=== PATIENT | male | born 1955 | race Caucasian/White ===

== ENCOUNTER 2018-05-13 05:50 | Inpatient (IN) | payer BC, MEDICARE, SELFPAY ==
[2018-04-30 09:55] VITALS: BMI 37.3
[2018-05-13] VITALS (13 sets, daily range): BP systolic 97–140; BP diastolic 55–82; PULSE 54–81; RESP 12–18; TEMP 36.3–37.3; O2SAT 94–98; BMI 37.3
--- NOTE | 2018-05-13 06:00 | DI.RAD.S_ITS ---
PROCEDURE: XR PELVIS 1-2V INDICATIONS: post op TECHNIQUE: One view of the pelvis acquired. COMPARISON: [facility] [place], [place], XR PELVIS WITH BILATERAL LATERAL HIPS, 03/20/2018, 8:58 FINDINGS: Bones: Patient is status post right total hip arthroplasty. No acute pelvic or hip fracture. Right hip alignment is anatomic. No gross hardware loosening or failure. Moderate to severe left hip joint osteoarthritis is seen. No suspicious bony lesions. Soft tissues: Visualized bowel gas pattern is normal. No suspicious soft tissue calcifications. IMPRESSION: Patient is post right total hip arthroplasty with anatomic right hip alignment. No gross hardware complication. Moderate to severe left hip joint osteoarthritis. Dictated by: Yuriy Aguilar M.D. on 05/13/2018 at 10:49 Approved by: Yuriy Aguilar M.D. on 05/13/2018 at 10:51
[2018-05-13] MEDS: LACTATED RINGERS 1,000 ML 42 ML IV (06:50)
[2018-05-13] MEDS: CELECOXIB 200 MG CAPSULE PO (06:55)
[2018-05-13] MEDS: PREGABALIN 75 MG CAPSULE PO (06:55)
[2018-05-13] MEDS: ACETAMINOPHEN 325 MG TABLET 975 MG PO ×3 (06:56→21:20)
[2018-05-13] MEDS: CEFAZOLIN 2 GM/100 ML FROZ.PIGGY IV ×3 (07:55→22:56)
--- NOTE | 2018-05-13 08:01 | PM.PREOP ---
Pre-operative Note Interval Note Pre-op Check: Yes History & Physical Reviewed by Physician Changes: No
[2018-05-13] MEDS: TRANEXAMIC ACID 1,000 MG VIAL 1000 MG INJ (08:35)
--- NOTE | 2018-05-13 09:00 | SUR.OPER ---
Lateral on padded OR bed. Gel axillary roll. Arms secured on padded armboard with pillow supporting top arm. Padded hip positioner braces x4 - anterior and posterior chest and pelvis. Additional gel pad used anterior pelvis. Gel pad under bottom leg from knee to foot and secured with tape over sheet.
[2018-05-13] MEDS: BUPIVACAINE 0.25% W/ EPI VIAL 50 ML INJ (09:06)
--- NOTE | 2018-05-13 10:18 | P.OP_ITS ---
Operative Date/Time/Diagnoses Date of procedure: 05/13/18 Time of procedure: 10:11 Pre-op diagnosis: Right hip degenerative joint disease Post-op diagnosis: same Procedure & Clinicians Procedure: Right total hip arthroplasty (CPT code 31564 with broker assistant) Same procedure as scheduled: Yes Indications: Patient is an 62-year-old male with severe right hip DJD. The patient has pain with activities and at rest, limited ambulation and activity tolerance, difficulties with ADLs, and failure of conservative treatment. We have discussed the nature of condition, treatment options, risks and benefits, and patient elects to proceed with total hip arthroplasty and gives informed consent. Surgeon: Kings Dickinson Traffic Warehouse Supervisor: Rita Kate Anesthesia Type: General Operative Notes Closure Type: primary Specimen(s): none sent Implants & Drains: Acetabulum: Miranda and Nephew R3 acetabular component size 54 mm Femoral component: Miranda and Nephew Synergy stem size 14 with high offset Femoral head: 36 mm + 8 mm Oxinium Estimated Blood Loss (mL): 100 Blood products transfused: none Procedure in detail: After satisfaction induction of anesthetic, and administration of IV antibiotics, the patient was positioned in the lateral decubitus position with all bony prominences well padded and pelvic position secured using a hip automotive glass installer positioning device. Right hip and lower extremity prepped and draped in the usual sterile fashion, 1st dose of intravenous tranexamic acid was administered, then a longitudinal incision was created centered over the greater trochanter and carried sharply through the skin and subcutaneous tissues down to the fascia pilar which was divided longitudinally and retracted with a Charnley retractor. External rotators visualize, cut, tagged, and retracted posteriorly, then the capsule was cut in a T-type fashion with the corners tagged and retracted. Hip was dislocated and femoral neck cut made according to preoperative templating. Acetabular retractors then placed, and the acetabular labrum and osteophytes were excised. The acetabulum was then sequentially reamed to 53 mm with an excellent circumferential ream and fit with the trial, although the acetabular component appeared to be more medialized than was originally templated. The trial component was removed and a permanent size 54 mm Miranda and Nephew R3 acetabular component was selected, positioned, and impacted with satisfactory position and fixation achieved. Permanent liner was then inserted with the elevated lip directed posteriorly. Soft tissue then removed off the lateral femoral neck in the lateral neck was entered using a box osteotome. T-handled reamers placed down the canal followed by sequential broaching to 14 with the final broach left in place for trial reduction which demonstrated fair leg length, range of motion, and stability characteristics with a 36 mm +0 trial ball. With the hip flexed 90? and adducted 30? the hip began to sublux at about 30? of internal rotation. Therefore a combination high offset +8 mm head neck combination was trialed which yielded much better leg length range of motion and stability characteristics with hip flexion to 90? in adduction 30?, subluxation did not occur until about 60? of internal rotation. The trial and broach were removed, and a permanent size 14 high offset Miranda and Nephew Synergy stem was selected and inserted with excellent position and fixation achieved. Another trial reduction yielded the above characteristics so the trial ball was exchanged for a permanent 36 mm + 8 Oxinium ball. The hip was irrigated and reduced and excellent leg length range of motion and stability characteristics were achieved and maintained. Periarticular tissues were infiltrated with Marcaine. The hip was copiously irrigated, and the capsule repaired with #2 Ethibond, and the piriformis was repaired back to the greater trochanter with the same. Fascia pilar closed with interrupted #1 Ethibond sutures, and the subcutaneous tissues were closed in 2 layers of 0 Vicryl and 2 0 Vicryl. Skin was closed with tunde and sterile dressings applied. Second dose of tranexamic acid was administered intravenously, and the anesthetic was terminated. Complications: none Condition: stable Disposition: PACU Plan for aftercare: Patient will be admitted to the acute care [facility], and anticipate discharge on postop day 1 or 2 with follow-up in office in 10-14 days. Outpatient physical therapy will be arranged and patient will continue to observe posterior hip precautions. Patient will continue use of postoperative Lovenox for 10 days postop.
[2018-05-13] MEDS: fentaNYL 100 MCG/2 ML INJ 50 MCG IV ×2 (10:20→10:25)
[2018-05-13] MEDS: HYDROMORPHONE 2 MG TABLET PO ×4 (10:50→22:56)
[2018-05-13] MEDS: LACTATED RINGERS 1,000 ML 125 ML IV (12:01)
--- NOTE | 2018-05-13 13:39 | CM.DANOTE ---
Addendum entered by Amaris Alcocer LPN 05/14/18 14:36: DCP: continued.. Pt did well with therapy and was ok'd to go home with Josephine's supportive assist. Went to room to check in with pt and he had already left the hospital for home. No concerns re the dc were identified by the care team members. Original Note: Discharge Planning/Care Management DCP: assessment: case received, EMR reviewed and went to room to introduce self and role. Pt remains in PACU. WB in room updated and will plan to see him tomorrow. Pt is a 62 year old malel who admitted early this morning to care of Dr. Dickinson for a planned: RTHA/posterior precautions. PCP: Chandrakant Mckinley Payer: [facility] and Medicare PT will be ordered and will check for OT need (likely, will obtain if need be). P: at this point is identified by Dr. Dickinson as home. Will be following as POC and therapy proceed to assist with d/c issues and options. CM Discharge Assessment Start: 05/13/18 13:35 Freq: Status: Active Protocol: Document 05/13/18 13:36 ITV (Rec: 05/13/18 13:39 ITV [id number]) Discharge Planning Assessment Advance Directives? No: Declines further information Advance Directives on File No History Provided By Medical Record Prior Living Arrangements Mobile home Household Members spouse Discharge Plan Home Community Services Physical Therapy Additional Comment At this time Dr. Dickinson states plan is home, one or 2 days post op, outpt PT. Will follow as POC unfolds to make sure this is doable. Anticipate PT/OT involvement Whiteboard Updated in Patient Room with Yes name and ext. # of Economist Research Assistant Comment Pt is still in PACU. Will see him either later today or tomorrow when he is stabilized on the medical floor. Review Status In Process Next Review Type Continued Stay Review
--- NOTE | 2018-05-13 14:56 | PC.NURSE ---
Admit Pt arrived to room 212 reports pain 6/10 to R hip. Dressing CDI, ice applied. Spinal failed and Pt has PP+ CMS+ pain medication and snack provided. Pt is motivated to complete swiftpath and work on ambulation today. 1445-Up with PT 1PA fww bed exchanged. Pain well controlled.
--- NOTE | 2018-05-13 15:00 | PT.IIE ---
Current Diagnoses Unilateral primary osteoarthritis, right hip (05/13/18) Surgery Performed Operation Date: 05/13/18 07:45 Actual Procedures p Total Hip Arthroplasty(Right) - Kings Dickinson MD Surgical History (Last Updated 04/30/18 @ 10:14 by Chery Brandt RN) History of lumbar spinal fusion (Acute) History of lumbar surgery (Acute) Hx of tonsillectomy (Acute) Medical History (Last Updated 04/30/18 @ 10:14 by Chery Brandt RN) Arthritis (Acute) Failed spinal cord stimulator (Acute) Fuchs' corneal dystrophy (Acute) HTN (hypertension) (Acute) Lumbar stenosis with neurogenic claudication (Acute) Numbness and tingling (Acute) Paroxysmal atrial fibrillation (Acute) Physical Therapy Inpatient Evaluation/Re-Eval M1 PT/OT-IP Prior Functional Status Start: 05/13/18 16:16 Freq: NEEDED Status: Active Protocol: Document 05/13/18 15:00 MDD (Rec: 05/13/18 16:28 [facility] [id number]) Medical Review Prior Functional Status Medical History Reviewed Yes Communication normal Mobility and Gait independent with no AD Activities of Daily Living and IADL's independent Social History Household Members spouse Living Arrangements House Number of Floors (Floors) One Floor Number of Stairs To Enter/Railing? 4 steps to enter, B hand rails Home Environment Standard Height Toilet Walk in Shower Home Equipment Raised Toilet Seat w/Armrests Employment Status Retired Additional Social History Comment Pt lives with his , Josephine in [place]. Their daughter lives just down the street, as well as multiple other family members. M2 PT-IP Current Condition Start: 05/13/18 16:16 Freq: NEEDED Status: Active Protocol: Document 05/13/18 15:00 MDD (Rec: 05/13/18 16:28 [facility] [id number]) Physical Therapy Current Condition Current Condition Evaluation Date 05/13/18 Treatment Diagnosis s/p R [id number] Onset Date 05/13/18 Precautions Posterior Hip Precautions No Hip Flexion > 90 degrees No Hip Internal Rotation No Hip Adduction Weight Bearing Status Weight Bearing Status Weight Bear as Tolerated M3 PT-IP Subjective Start: 05/13/18 16:16 Freq: NEEDED Status: Active Protocol: Document 05/13/18 15:00 MDD (Rec: 05/13/18 16:28 [facility] [id number]) Subjective Physical Therapy Visit Type Type Initial Evaluation Visit Start Time 14:20 Visit Stop Time 15:00 Total Visit Minutes 40 Notes BP supine: 102/63 mm Hg sitting EOB: 102/48 mm Hg, after 5 minutes 101/57 mm Hg After activity: 124/65 mm Hg Number of GROCERY SACKER Visits 0 Physical Therapy Visit Comments Patient Comments Pt very motivated to get out of bed and start walking today . Therapy Pain Assessment Pain When Pain Assessed At Rest Pain Present Pain Present Pain Reported Location Right Hip Intensity 4 Scale Used Numeric (1 - 10) Description Aching Pain Management Techniques Apply Cold Timing of Activity with Medications M4 PT-IP Mobility and Gait Start: 05/13/18 16:16 Freq: NEEDED Status: Active Protocol: Document 05/13/18 15:00 [facility] (Rec: 05/13/18 16:28 [facility] [id number]) PT-Bed Mobility Assessment Supine to Sit Supine to Sit Standby Assistance Bedrails Scooting Scooting to Edge of Bed Independent PT-Transfer Assessment Sit to and From Stand Sit to and from Stand Contact Guard Assistance Equipment Transfer Assistive Device Gait Belt Front Wheeled Walker Transfers Transfer Destination Chair Transfer Technique Stand Step Pivot Transfer Ability Level of Assist Contact Guard Assistance Comments Mobility Comments cues/reminders for kicking R LE out during sit <> stand to low recliner Gait Assessment Gait Distance (Feet) (feet) 100 Able to Maintain Weight Bearing Status Yes During Gait Assistive Devices Assistive Device Gait Belt Front Wheeled Walker Gait Deviations General Gait Pattern Antalgic Step-to Gait Comments Gait Comments Step to gait improved to step through with cues. Increased reliance on UE's on walker. PT-Balance Assessment Sitting Balance and Reactions Static Sitting Balance Ability Normal Dynamic Sitting Balance Ability Normal Standing Balance and Reactions Static Standing Balance Ability Good Dynamic Standing Balance Ability Good M5 PT-IP Objective Assessments Start: 05/13/18 16:16 Freq: NEEDED Status: Active Protocol: Document 05/13/18 15:00 [facility] (Rec: 05/13/18 16:28 [facility] [id number]) Orientation Orientation/Cognition Level of Alertness Alert Orientation Name Age Birthday Month Date Year Day of Week Place Situation Language Function Ability No Deficits Noted Safety Awareness Understands Safety Issues Memory Description No Deficits Noted Gross Range of Motion Lower Extremity ROM Assessment Within Functional Limits Strength Lower Extremity Strength Assessment Within Functional Limits Coordination Assessment Gross Coordination Gross Coordination WNL Sensation Assessment Sensation Gross Sensation WNL M6 PT-IP Treatment Start: 05/13/18 16:16 Freq: NEEDED Status: Active Protocol: Document 05/13/18 15:00 MDD (Rec: 05/13/18 16:28 [facility] [id number]) Physical Therapy Treatment Education Education Provided Precautions Weight Bearing Status Post-Op Packet Safety M7 PT-IP Assessment and Plan Start: 05/13/18 16:16 Freq: NEEDED Status: Active Protocol: Document 05/13/18 15:00 MDD (Rec: 05/13/18 16:28 [facility] [id number]) PT Summary Assessment and Plan Potential Rehabilitation Potential Excellent Status of Condition at Evaluation Stable Summary Impairments Pain Bed Mobility Transfers Gait Activity Tolerance Progress Towards Goals Progressing Toward Goals Assessment Summary Pt demonstrates bed mobility with SBA and use of bed rails and transfers and gait with CGA today. Although BP was low throughout, pt was asymptomatic. Demonstrates good knowledge of posterior hip precautions - able to verbalize them prior to session. Will continue to benefit from skilled inpatient PT to maximize function for safe d/c home. Goals Bed Mobility Goal Independent Transfer Goal Independent Gait Goal Independent Gait Distance 100 Other Goals Ascend/descend 4 steps with B hand rails Days to Meet Goals 3 Frequency of Treatment Frequency Of Treatment Twice a Day Treatment Plan Physical Therapy Treatment Plan Bed Mobility Training Transfer Training Gait Training Post Op Education Other Recommendations and Next Treatment review bed mobility Focus Recommendations To Nursing Amount of Assist Needed 1 Person Assist Discharge Recommendations PT Discharge Recommendations Home Home with Assistance Equipment Needed for Home Before pt may benefit from use of a Discharge shower chair/bench initially.
[2018-05-13] MEDS: HYDROCODONE/ACET 5/325 TABLET 1 TAB PO (16:59)
[2018-05-13] MEDS: METOPROLOL ER 25 MG TABLET PO (21:19)
[2018-05-13] MEDS: ASPIRIN EC 81 MG TABLET PO (21:20)
--- NOTE | 2018-05-13 21:48 | PC.NURSE ---
AXEL SHIFT NOTE: Patient doing well this shift, up with PT at shift change and tolerating mobilization with little pain. Patient able to ambulate with SBA to bathroom during shift. Dilaudid effective for pain control at this time. Tolerating POs with no nausea. Patient states he is feeling stronger and leg is feeling awake more. No acute distress, VSS. at bedside to room in for the night. Call light in reach. Will continue to monitor.
--- NOTE | 2018-05-13 23:46 | PC.NURSE ---
Addendum entered by Alicia Tyler R.N. 05/14/18 06:54: Slept at intervals. Medicated at 0611 with Dilaudid for complaint of 7/10 pain; now reassessed and pain is easing up and rates severity as 5/10. Requesting to ambulate in [place] once pain under better control. Original Note: Patient is alert and oriented. Breath sounds CTA with RA sat of 95%. HRR. Denies nausea. BT present and is passing flatus. Denies dysuria, frequency, urgency or incontinence and is using urinal to void. Dressing to right hip is CDI. States pain is currently 2-3/10 after being medicated at 2300 with Dilaudid. Ice pack is applied for additional comfort. Able to turn himself in bed but prefers to lie on back. CMS intact. Unable to lift right leg off bed. Declines use of SCD's; discussed importance of use to prevent blood clots but states he is moving his legs alot so continued to decline use. Fall risk score is moderate; bed alarm on for the night as precautionary. rooming in.
[2018-05-14] MEDS: HYDROMORPHONE 2 MG TABLET PO ×2 (03:12→06:11)
[2018-05-14 03:26] VITALS: BP 118/64; PULSE 66; RESP 16; TEMP 36.7; O2SAT 97
[2018-05-14 06:50] LABS: Hematocrit 34.3 % (41-53); Hemoglobin 11.6 g/dL (13.5-17.5)
[2018-05-14 07:00] VITALS: BP 121/67; PULSE 66; RESP 16; TEMP 37.3; O2SAT 93
[2018-05-14] MEDS: OXYCODONE IR 10 MG TABLET PO ×2 (09:23→12:01)
[2018-05-14] MEDS: ACETAMINOPHEN 325 MG TABLET 975 MG PO (09:26)
[2018-05-14 09:28] VITALS: PULSE 72
[2018-05-14] MEDS: ASPIRIN EC 81 MG TABLET PO (09:28)
[2018-05-14] MEDS: METOPROLOL ER 25 MG TABLET PO (09:28)
[2018-05-14] MEDS: RIVAROXABAN 10 MG TABLET 20 MG PO (09:28)
[2018-05-14] MEDS: AMIODARONE 200 MG TABLET 400 MG PO (09:29)
[2018-05-14 09:30] VITALS: PULSE 72
[2018-05-14] MEDS: DORZOLAMIDE/TIMOLOL OPHTH 10 ML 1 DROPS EYE-BOTH (09:30)
[2018-05-14] MEDS: DIGOXIN 0.25 MG TABLET PO (09:30)
--- NOTE | 2018-05-14 11:12 | OT.IP.EVAL ---
Current Diagnoses Unilateral primary osteoarthritis, right hip (05/13/18) Surgery Performed Operation Date: 05/13/18 07:45 Actual Procedures p Total Hip Arthroplasty(Right) - Kings Dickinson MD Past Medical History (Last Updated 04/30/18 @ 10:14 by Chery Brandt, RN) Arthritis (Acute) Failed spinal cord stimulator (Acute) Fuchs' corneal dystrophy (Acute) HTN (hypertension) (Acute) Lumbar stenosis with neurogenic claudication (Acute) Numbness and tingling (Acute) Paroxysmal atrial fibrillation (Acute) Surgical History (Last Updated 04/30/18 @ 10:14 by Chery Brandt RN) History of lumbar spinal fusion (Acute) History of lumbar surgery (Acute) Hx of tonsillectomy (Acute) Occupational Therapy Inpatient Evaluation/Re-Eval M1 PT/OT-IP Prior Functional Status Start: 05/14/18 15:52 Freq: NEEDED Status: Active Protocol: Document 05/14/18 15:52 [id number] (Rec: 05/14/18 16:05 THERON [id number]) Medical Review Prior Functional Status Medical History Reviewed Yes Diet/Fluid Consistency Regular Communication normal Mobility and Gait independent with no AD Activities of Daily Living and IADL's independent Prior Functional Level (Other details) pt is retired, works 4am- 1pm and will take 1 week off work Social History Household Members spouse Living Arrangements House Number of Floors (Floors) One Floor Number of Stairs To Enter/Railing? 4 steps to enter, B hand rails Home Environment Standard Height Toilet Walk in Shower Home Equipment Front Wheel Walker Raised Toilet Seat w/Armrests Employment Status Retired Additional Social History Comment Pt lives with his , Josephine in [place]. Their daughter lives just down the street, as well as multiple other family members. Pt plans to stand to shower with SBA from . M2 OT-IP Current Condition Start: 05/14/18 15:52 Freq: Status: Active Protocol: Document 05/14/18 15:52 PJM (Rec: 05/14/18 16:05 PJ [id number]) Occupational Therapy Current Condition Current Condition Evaluation Date 05/14/18 Treatment Diagnosis decreased self care, functional mobility after R TAWNYA Diagnosis Onset Date 05/13/18 Post Operative Precautions Posterior Hip Precautions No Hip Flexion > 90 degrees No Hip Internal Rotation No Hip Adduction Weight Bearing Status Weight Bearing Status Weight Bear as Tolerated M3 OT- IP Subjective and Pain Start: 05/14/18 15:52 Freq: Status: Active Protocol: Document 05/14/18 15:52 PJM (Rec: 05/14/18 16:05 [facility] [id number]) OT- Subjective Occupational Therapy Visit Type Type Initial Evaluation Visit Start Time 10:10 Visit Stop Time 11:12 Total Visit Minutes 62 Notes here for education this session Occupational Therapy Visit Comments Patient Comments I don't know how to get my pants on. Patient/Caregiver Goals to go home today OT Pain Assessment Pain When Pain Assessed After Treatment Pain Present Pain Present Pain Reported Location Right Hip Intensity 5 Scale Used Numeric (1 - 10) Description Acute Pain Behaviors Guarding Management Techniques Re-positioning Timing of Activity with Medications M4 OT- IP ADL's Start: 05/14/18 15:52 Freq: Status: Active Protocol: Document 05/14/18 15:52 PJM (Rec: 05/14/18 16:05 [facility] [id number]) OT [id number] General Evaluation Self-Feeding Ability Independent OT ADL-Grooming General Evaluation Grooming Ability Independent Comments OT Grooming Comments standing at sink OT ADL-Oral Care General Eval Oral Care Ability Independent Comments Oral Care Comments standing at sink OT ADL-Dressing General Eval Upper Body Dressing Ability Independent Lower Body Dressing Ability Standby Assistance Areas Needing Assistance Retrieving/Set-up of Clothing Pull-Over Shirt Pants/Shorts Shoes Assistive Devices Dressing Assistive Devices Hypercil Core Transformer Assembler Comments OT Dressing Comments Pt declines sock aid as he never wears socks until winter . He wears slip on sandals. Pt can borrow certified coding specialist or will order on line. Resource information provided. OT ADL-Toileting General Evaluation Toileting Ability Independent Devices Toileting Assistive Devices Toilet Paper Aid Comments OT Toileting Comments Pt has toilet paper aid and education provided re: it's use. OT ADL-Bathing Bathing Type Bathing Type Shower Devices Bathing Equipment Long Handled Sponge or Farley Comments OT Bathing Comments Pt declined to shower here. He plans to stand. will assist PRN. She will obtain long bath sponge for pt. M5 OT- IP IADL's Start: 05/14/18 15:52 Freq: Status: Active Protocol: Document 05/14/18 15:52 PJM (Rec: 05/14/18 16:05 [facility] [id number]) OT-Instrumental Activities of Daily Living Deficits IADL Deficits Identified Deficits Home Safety Awareness Awareness of Need for Assistance at Home Good Awareness Ability to Problem Solve Emergency Able to Problem Solve Situations Medication Management Medication Management No Deficits Identified Money Management Money Management No Deficits Identified Meal Preparation Meal Preparation Caregiver Provides Assist Meal Preparation Comments Provided education re: carrying food items with FWW Geospatial Information Technologist Geospatial Information Technologist Caregiver Provides Assist Geospatial Information Technologist Comments to assist until pt able Driving Driving Caregiver Provides Assist Driving Comments family to assist until pt able M6 OT- IP Functional Cognition Start: 05/14/18 15:52 Freq: Status: Active Protocol: Document 05/14/18 15:52 THERON (Rec: 05/14/18 16:05 [facility] [id number]) Cognitive Factors Limiting Selfcare Function Cognitive Ability Level of Alertness Alert Patient Orientation Name Age Birthday Month Date Year Day of Week Place Situation Attention Span Ability Capable of Focused Attention Capable of Sustained Attention Ability to Follow Commands Able to Follow One Step Commands Able to Follow Multi-Step Commands Memory Description No Deficits Noted Safety Awareness No Deficits Noted Problem Solving Ability No deficits Noted Executive Function Ability No Deficits Noted Abstract Thinking Ability No Deficits Noted Cognitive Comments Cognitive Assessment Comments Pt recalls 3/3 hip precautions and asking appropriate questions about adapted ADLS OT- Vision and Hearing OT- Hearing Assessment OT- Hearing Assessment WFL OT- Vision Assessment Visual Acuity WFL Glasses All The Time Vision Assessment Comments Pt denies any recent changes. M7 OT- IP Mobility and Balance Start: 05/14/18 15:52 Freq: Status: Active Protocol: Document 05/14/18 15:52 THERON (Rec: 05/14/18 16:05 [facility] [id number]) OT- Bed Mobility Assessment Rolling Type of Rolling Roll to Left Level of Assistance Standby Assistance Supine to Sit Supine to Sit Assist Independent Scooting Scooting to Edge of Bed Independent OT-Transfer Assessment Sit to and From Stand Sit to and from Stand Standby Assistance Technique Transfer Destination Car Chair Transfer Technique Stand Step Pivot Devices Transfer Assistive Devices Gait Belt Front Wheeled Walker Comments Mobility Comments Provided education re: use of cane as leg rn or lpn. Pt normally exits bed to Left. Explained that exiting to Right may be easier and P.T. to practice in/out of bed again with pt later this AM. OT- Gait Assessment Gait Gait Assistance Required: Standby Assistance Distance (Feet) (feet) 3 Assistive Devices Assistive Device Gait Belt Front Wheeled Walker Comments Gait Ability Comments transfer to chair OT- Balance Assessment Sitting Balance and Reactions Static Sitting Balance Ability Normal Dynamic Sitting Balance Ability Normal Standing Balance and Reactions Static Standing Balance Ability Good Dynamic Standing Balance Ability Good Comments Other Balance Tests/Deviations/Treatment No LOB during standing for : clothing management M8 OT- IP Objective Assessments Start: 05/14/18 15:52 Freq: Status: Active Protocol: Document 05/14/18 15:52 PJ (Rec: 05/14/18 16:05 [facility] [id number]) OT Gross Range of Motion Upper Extremity Range of Motion Assessment Within Functional Limits OT Strength Upper Extremity Strength Assessment Within Functional Limits OT- Coordination Assessment Comments Coordination Comments BUE WNL OT-Muscle Tone Assessment Muscle Tone WNL Yes OT Sensation Assessment Comments Summary Comments BUE WNL Edema Edema Absent Edema Comments BUE M9 OT- IP Assessment and Plan Start: 05/14/18 15:52 Freq: Status: Active Protocol: Document 05/14/18 15:52 PJM (Rec: 05/14/18 16:05 [facility] [id number]) OT Summary Assessment and Plan Potential Rehabilitation Potential Excellent Analytic Complexity at Evaluation Low Summary OT Impairments Pain Assessment Summary Low complexity OT assessment and all education completed in one visit re: minimum seat heights, adapted ADLS, bathroom/car/ shower stall transfers within posterior hip precautions. Pt/ verbalize/demonstrate good understanding of all education. will obtain certified coding specialist and long bath sponge for pt. Pt plans to d/c home today with 24 hr assist from supportive, capable for first week. No further OT services needed. Frequency of Treatment Frequency Of Treatment Discharge Treatment Plan Other Treatment Recommendations and Next No further OT services needed Treatment Focus Discharge Recommendations OT Discharge Recommendations Home with Assistance Home Equipment Needs certified coding specialist, long bath sponge- to obtain
--- NOTE | 2018-05-14 11:26 | PC.NURSE ---
Bulky dressing to right hip removed and Coversite applied in its place. HL removed. Pt up with PT/OT and is now dressed. Pt states he will eat lunch and then discharge home with Spouse Josephine. Reviewed d/c meds, time of last dose, hip precautions, s/s of infection and when to call MD, and follow up appointment. Pt denies further questions and will be taken out via w/c after lunch.
--- NOTE | 2018-05-14 11:51 | PT.IPTN ---
Current Diagnoses Unilateral primary osteoarthritis, right hip (05/13/18) Surgery Performed Operation Date: 05/13/18 07:45 Actual Procedures p Total Hip Arthroplasty(Right) - Kings Dickinson MD Physical Therapy Treatment Note M2 PT-IP Current Condition Start: 05/13/18 16:16 Freq: NEEDED Status: Active Protocol: Document 05/13/18 15:00 MDD (Rec: 05/13/18 16:28 MDD [id number]) Physical Therapy Current Condition Current Condition Evaluation Date 05/13/18 Treatment Diagnosis s/p R TAWNYA Onset Date 05/13/18 Precautions Posterior Hip Precautions No Hip Flexion > 90 degrees No Hip Internal Rotation No Hip Adduction Weight Bearing Status Weight Bearing Status Weight Bear as Tolerated M3 PT-IP Subjective Start: 05/13/18 16:16 Freq: NEEDED Status: Active Protocol: Document 05/14/18 11:40 CLB (Rec: 05/14/18 11:51 CLB [id number]) Subjective Physical Therapy Visit Type Type Treatment Note Visit Start Time 11:10 Visit Stop Time 11:40 Total Visit Minutes 30 Number of INVERTED BLOCK OPERATOR Visits 1 Physical Therapy Visit Comments Patient Comments Pt agreeable to do therapy. Therapy Pain Assessment Pain When Pain Assessed During Mobility Pain Present Pain Present Pain Reported Location Right Hip Intensity 5 Scale Used Numeric (1 - 10) Description Aching Pain Management Techniques Apply Cold Timing of Activity with Medications M4 PT-IP Mobility and Gait Start: 05/13/18 16:16 Freq: NEEDED Status: Active Protocol: Document 05/14/18 11:40 CLB (Rec: 05/14/18 11:51 CLB [id number]) PT-Bed Mobility Assessment Supine to Sit Supine to Sit Standby Assistance Scooting Scooting to Edge of Bed Independent PT-Transfer Assessment Sit to and From Stand Sit to and from Stand Standby Assistance Equipment Transfer Assistive Device Gait Belt Front Wheeled Walker Transfers Transfer Destination Bed Chair Transfer Ability Level of Assist Standby Assistance Gait Assessment Gait Gait Assistance Required: Standby Assistance Distance (Feet) (feet) 200 Able to Maintain Weight Bearing Status Yes During Gait Assistive Devices Assistive Device Gait Belt Front Wheeled Walker Gait Deviations General Gait Pattern Antalgic Comments Gait Comments Pt ambulating with step through gait pattern. Stair Climbing Assessment Evaluation Level of Assist On Stairs Contact Guard Assistance 1 Person Assistance Devices Stair Climbing Assistive Devices Straight Cane Right Railing Technique/Endurance Stair Climbing Direction Ascend and Descend Stair Climbing Technique Step to Step Number of Steps Climbed 3 Query Text: Stair Climbing Set # Repetitions (reps) 2 Comments Stair Climbing Comments Pt completed on set of stairs with therapist to demonstrate for . assisted pt safely on second set. M5 PT-IP Objective Assessments Start: 05/13/18 16:16 Freq: NEEDED Status: Active Protocol: Document 05/13/18 15:00 MDD (Rec: 05/13/18 16:28 MDD [id number]) Orientation Orientation/Cognition Level of Alertness Alert Orientation Name Age Birthday Month Date Year Day of Week Place Situation Language Function Ability No Deficits Noted Safety Awareness Understands Safety Issues Memory Description No Deficits Noted Gross Range of Motion Lower Extremity ROM Assessment Within Functional Limits Strength Lower Extremity Strength Assessment Within Functional Limits Coordination Assessment Gross Coordination Gross Coordination WNL Sensation Assessment Sensation Gross Sensation WNL M6 PT-IP Treatment Start: 05/13/18 16:16 Freq: NEEDED Status: Active Protocol: Document 05/14/18 11:40 CLB (Rec: 05/14/18 11:51 CLB [id number]) Physical Therapy Treatment Exercises Exercises Ankle Pumps Gluteal Sets Quad Sets Heel Slides Supine Hip Abduction Education Education Provided Precautions Weight Bearing Status Post-Op Packet Safety M7 PT-IP Assessment and Plan Start: 05/13/18 16:16 Freq: NEEDED Status: Active Protocol: Document 05/14/18 11:40 CLB (Rec: 05/14/18 11:51 CLB [id number]) PT Summary Assessment and Plan Potential Rehabilitation Potential Excellent Status of Condition at Evaluation Stable Summary Impairments Pain Bed Mobility Transfers Gait Activity Tolerance Progress Towards Goals Progressing Toward Goals Assessment Summary Pt is able to get in and out of bed with SPC assisting RLE while following all post. TAWNYA precautions. CG training was provided to Josephine for bed mobility, gait, stair and assisting pt with ther ex. Pt seems able to d/c home when medically stable. Goals Bed Mobility Goal Independent Transfer Goal Independent Gait Goal Independent Gait Distance 100 Other Goals Ascend/descend 4 steps with B hand rails Frequency of Treatment Frequency Of Treatment Twice a Day Treatment Plan Physical Therapy Treatment Plan Bed Mobility Training Transfer Training Gait Training Post Op Education Recommendations To Nursing Amount of Assist Needed 1 Person Assist Discharge Recommendations PT Discharge Recommendations Home Home with Assistance
--- NOTE | 2018-05-14 12:11 | PC.NURSE ---
Pt out via w/c by VULCANIZING MACHINE OPERATOR to POV with Spouse and all belongings.
--- NOTE | 2018-05-14 13:36 | PM.DS.1 ---
History of Present Illness Date Patient Seen: 05/14/18 Time Patient Seen: 08:36 Chief complaint: [id number] RIGHT TOTAL HIP ARTHROPLASTY Narrative: s/p total hip arthroplasty Discharge Providers Date of admission: 05/13/18 05:50 Primary care physician: Chandrakant Mckinley MD Consults: 05/13/18 10:50 Consult to Discharge Planning Routine Comment: Consult to Physical Therapy Evaluate & Treat Comment: Physician Instructions: post op TAWNYA protocol Consult to Respiratory Therapy Evaluate & Treat Comment: Physician Instructions: Evaluate and treat 05/14/18 09:50 Consult to Occupational Therapy Evaluate & Treat Comment: Physician Instructions: Evaluate and treat Discharge provider: Megan Goel PA-C Summary Discharge Diagnosis: s/p total hip arthroplasty atrial fibrillation Hospital Course: [place] was admitted for right total hip arthroplasty with Dr. Dickinson, and he consented to procedure. Hospital course was unremarkable. On postop day 1. Patient was feeling well want go home. He had been up and ambulating with physical therapy and is aware of his posterior hip precautions. He has outpatient physical therapy scheduled. He is taking Xarelto and ASA for DVT prophylaxis. He was eating and voiding without difficulty or assistance. His pain was well controlled with oxycodone. Exam Vital Signs (past 8 hours): - 05/14/18 07:00 05/14/18 09:28 05/14/18 09:30 Temperature 99.2 F Pulse Rate 66 72 72 Respiratory Rate 16 Blood Pressure 121/67 H Pulse Oximetry 93 Oxygen Delivery Method Room Air Oxygen Flow Rate 0 Narrative Exam Narrative: Patient lying in bed in no acute distress. Alert and oriented x3. Calves are soft, compressible, nontender bilaterally. Right hip dressing was CDI. Sensation intact to light touch throughout bilateral lower extremities. Pulses are symmetrical. His pain was well controlled with oxycodone. He had been up and ambulated with physical therapy yesterday. Objective Labs Result Diagrams: 05/14/18 04:56 Labs: Laboratory Results - last 24 hr 05/14/18 04:56 Hgb 11.6 L Hct 34.3 L Discharge Plan Discharge Plan Patient Disposition: Home Discharge comment: DC home this afternoon with Discharge Med Rec/Prescriptions Prescriptions: New aspirin 81 mg Tablet,Delayed Release (Dr/Ec) 81 mg PO BID Qty: 30 RF: 0 oxycodone 5 mg Tablet 5 mg PO Q3HR PRN (Reason: Pain, Moderate (4-6)) Qty: 30 RF: 0 Continue digoxin 250 mcg Tablet 0.25 mg PO QAM RF: 0 fluorometholone 0.1 % Drops,Suspension 1 drp EYE-BOTH QWEEK RF: 0 dorzolamide-timolol 22.3-6.8 mg/mL Drops 1 drp EYE-BOTH QAM RF: 0 metoprolol succinate 25 mg Tablet Extended Release 24 Hr 25 mg PO BID RF: 0 amiodarone 400 mg Tablet 400 mg PO DAILY RF: 0 rivaroxaban [Xarelto] 20 mg Tablet 20 mg PO DAILY RF: 0 Follow up/Referrals: Chandrakant Mckinley MD [Primary Care Provider] - Kings Dickinson MD [Physician] - (follow up in 5-7 days with [facility]) Provider Discharge Instructions Diet: Regular Activity: Posterior hip precautions, weight-bearing as tolerated Visit Report/Discharge Packet Instructions: DI for Hip Replacement, Oxycodone Visit Report Forms: Stroke Signs & Symptoms Discharge Data Primary Care Provider: Chandrakant Mckinley Attending Provider: Kings Dickinson Admit Date/Time: 05/13/18 05:50 Discharges patient from system. Discharge Date/Time: 05/14/18 12:12 Quality VTE Deep Vein Thrombosis/Pulmonary Embolism Present on Admission: No
== END 2018-05-14 12:12 | disposition home or self-care (01) | DRG 470 ==
PROVIDERS: Admitting Provider Orthopaedic Surgery; PCP Family Medicine; Visit Provider Orthopaedic Surgery
PROC: 0SR90JZ Replacement of Right Hip Joint with Synthetic Substitute, Open Approach (ICD-10-PCS; CPT 27130; principal; 2018-05-13 07:45)
DX: M16.11 Unilateral primary osteoarthritis, right hip (principal); M87.051 Idiopathic aseptic necrosis of right femur; I48.91 Unspecified atrial fibrillation; Z79.01 Long term (current) use of anticoagulants; I10 Essential (primary) hypertension; F17.210 Nicotine dependence, cigarettes, uncomplicated
CPT/HCPCS: 72170; 85014; 85018; 97110; 97116; 97161; 97165; 97530; 97535; C1776; J0690; J2250; J2405; J2704; J3010